=== PATIENT | female | born 1955 | race Hispanic/Latino ===

== ENCOUNTER 2024-08-30 11:17 | Emergency (ER) | payer MEDICARE, SELFPAY ==
[2024-08-30 11:23] VITALS: BP 119/58; PULSE 66; RESP 16; TEMP 36.3; O2SAT 97
--- NOTE | 2024-08-30 11:45 | ED.GENADULT ---
HPI - General Adult General Chief complaint: Abdominal Pain Stated complaint: flu symptoms Time Seen by Provider: 08/30/24 11:40 Source: patient, family, RN notes reviewed and old records reviewed Mode of arrival: ambulatory Limitations: language barrier and other (daughter translates) History of Present Illness HPI narrative: 69 year female who presents to [facility] care with complaints of 3 day history of abdominal pain below her umbilicus that feel like it goes down to her rectum with loose stools. Patient reports no nausea or vomiting has been drinking electrolyte supplement and has been having a light diet. Patient reports that she did have a low grade fever of 99.7F last night. Patient reports that pain is sharp and rates it at a 7/10. Patient reports that last colonoscopy 12 years ago. MD complaint: abdominal pain below umbilicus Onset (ago): day(s) (3) Location: abdomen (below umbilicus) Severity scale (1-10): 7 Quality: stabbing and other (cramping) Treatments prior to arrival: other (no OTC medication, electrolyte replacement and light diet) Related Data Allergies Allergy/AdvReac Type Severity Reaction Status Date / Time amoxicillin Allergy Intermediate pass Verified 08/30/24 11:52 Review of Systems Review of Systems: CONSTITUTIONAL: Reports fever, chills, or sweats. ENT: Denies rhinorrhea, congestion, sore throat, or otalgia. CARDIOVASCULAR: Denies chest pain, palpitations, or edema. RESPIRATORY: Denies cough or dyspnea. GASTROINTESTINAL: Reports abdominal pain below umbilicus, no nausea, vomiting, positive for diarrhea GENITOURINARY: Denies dysuria or hematuria. SKIN: Denies rash or itching. MUSCULOSKELETAL: Denies back pain, joint pain, or myalgia. NEUROLOGIC: Denies headache, numbness, or weakness. All systems reviewed & are unremarkable except as noted in HPI and below PMFSH Past Medical History Medical History (Updated 08/31/24 @ 11:22 by Mey Hernandez NP) Back pain Surgical History Surgical History (Updated 08/31/24 @ 11:04 by Mey Hernandez NP) History of lumbar surgery with hardware Social History Social History (Updated 08/31/24 @ 11:02 by Mey Hernandez NP) Smoking status: Never smoker Alcohol intake: current Alcohol use details: rare social Substance use type: does not use Living arrangements: with family Gender identity (if verbalized by the patient): Female Comments At time of signature, agree with nursing past medical, surgical, social and family history. There is no relevant family history pertinent to the presenting complaint Exam Narrative: GENERAL: Well-appearing, well-nourished, and in no acute distress. HEAD: Normocephalic, atraumatic. EYES: PERRLA, conjunctivae clear, and EOMI. ENT: Nares clear. Mucous membranes moist. Oropharynx without edema, erythema, or lesions. Tonsils not enlarged and without exudate. NECK: Supple. No lymphadenopathy CHEST: Speaks in full sentences. No respiratory distress., no cough noted SAO2 97% on room air HEART: Regular rate and rhythm. ABDOMEN: Soft, flat, nondistended. discomfort below umbilicus region, no rebound tenderness, or rigidity.. No pulsatilla masses. Bowel sounds present in all four quadrants. No organomegaly. Negative Hodge?s sign. tenderness on palpation to area below umbilicus, no McBurney point tenderness,. No Supra public tenderness or distension. Good femoral pulses bilaterally. No hernia noted. No scars or surface trauma. SKIN: Warm, dry, no rash. NEURO:? Alert and oriented x3. PSYCH: Normal mood and affect Course Course Emergency Course: Patient is aware of diagnosis, understands and agrees to treatment plan.? Anticipatory guidance given.? Patient agrees to follow-up as directed and is aware of reasons to transfer to the emergency department. Portions of this record may have been created with voice recognition software Level of Care: Express Care Visit Vital Signs Vital signs: Vital Signs Temperature 36.3 C L 08/30/24 11:23 Pulse Rate 66 08/30/24 11:23 Respiratory Rate 16 08/30/24 11:23 Blood Pressure 119/58 L 08/30/24 11:23 Pulse Oximetry 97 08/30/24 11:23 Oxygen Delivery Room Air 08/30/24 11:23 Temperature 36.3 C L 08/30/24 11:23 Pulse Rate 66 08/30/24 11:23 Respiratory Rate 16 08/30/24 11:23 Blood Pressure 119/58 L 08/30/24 11:23 Pulse Oximetry 97 08/30/24 11:23 Oxygen Delivery Room Air 08/30/24 11:23 Reviewed Transfer Transfered to: [facility] ([place]) Transportation: Other (per private car with daughter) Transfer rationale: Abdominal pain below umbilicus, diarrhea and fevers last evenig, needs further evaluation, labs, and advanced testing Accepting physician: ALBERTO Transfer comments: transfer per private car with daughter to ED at [facility] Medical Decision Making MDM Narrative Medical decision making narrative: 1216 Call placed to ED at [facility] with condition reports, VS PMH and results of testing done reviewed with AUTOS DISASSEMBLER Enoch Cadena with Dr Cuellar accepting physician for transfer. Differential Diagnosis Differential Diagnosis: abdominal pain, diverticulitis, bowel obstruction, colon infection, colitis. Medical Records Medical records reviewed: Yes I reviewed the external patient's medical records. Vital Signs Vital Signs: Vital Signs Temperature 36.3 C L 08/30/24 11:23 Pulse Rate 66 08/30/24 11:23 Respiratory Rate 16 08/30/24 11:23 Blood Pressure 119/58 L 08/30/24 11:23 Pulse Oximetry 97 08/30/24 11:23 Oxygen Delivery Room Air 08/30/24 11:23 Temperature 36.3 C L 08/30/24 11:23 Pulse Rate 66 08/30/24 11:23 Respiratory Rate 16 08/30/24 11:23 Blood Pressure 119/58 L 08/30/24 11:23 Pulse Oximetry 97 08/30/24 11:23 Oxygen Delivery Room Air 08/30/24 11:23 Lab Data Lab results reviewed: Yes I reviewed the patient's lab results. Lab results narrative: influenza A negative, Influenza B negative, urine dip see report Labs: Lab Results 08/30/24 08/30/24 Range/Units 11:56 12:03 POC Urine Color Mandy POC Urine Clarity Clear POC Urine pH 5.5 POC Ur Specif Aledo 1.025 POC Urine Protein 1+ (Negative) POC Ur Glucose (UA) Negative (Negative) POC Urine Ketones Negative (Negative) POC Urine Blood Negative (Negative) POC Urine Nitrite Negative (Negative) POC Urine Bilirubin 1+ (Negative) POC Urine Urobilinogen 1.0 POC U Leukocyte Esteras Negative (Negative) POC Influenza A Ag Negative (Negative) POC Influenza B Ag Negative (Negative) POC SARS CoV-2 Ag Negative (Negative) reviewed Critical Care Time Critical Care Time Critical Care Time: No Discharge Plan Discharge Clinical Impression: Abdominal pain Qualifiers: Abdominal location: periumbilical Qualified Code(s): R10.33 - Periumbilical pain Diarrhea Qualifiers: Diarrhea type: unspecified type Qualified Code(s): R19.7 - Diarrhea, unspecified Patient Disposition: Acute Care Hospital Condition: Stable Patient Language: Hungarian Follow-up/Referrals: PHYSICIAN NOT ON STAFF,NONSTAFF [Primary Care Provider] - Time of Disposition: 12:29 Quality [place] Coma Scale Eyes: Open Verbal: Oriented and Alert Motor: Follows Commands Trevon Coma Total Score: 15
[2024-08-30 11:59] LABS: EDUAAPPEAR Clear; EDUABILI 1+ (Negative); EDUABLOOD Negative (Negative); EDUACOLOR1 Amber; EDUAGLUCOSE Negative (Negative); EDUAKETONE Negative (Negative); EDUALEUKO Negative (Negative); EDUANITRATE Negative (Negative); EDUAPH 5.5; EDUAPROTEIN 1+ (Negative); EDUASPGRAVITY 1.025
[2024-08-30 12:13] LABS: EDCOVIDSCREEN Negative (Negative); EDINFLUASCREEN Negative (Negative); EDINFLUBSCREEN Negative (Negative)
--- OUTSIDE RECORDS SUMMARY | 2024-08-30 13:14 | XMS_ITS | Encounter Summary ---
Author Organization [facility] Address [address] [facility] 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
--- OUTSIDE RECORDS SUMMARY | 2024-08-30 13:14 | XMS_ITS | Clinical Summary ---
Author Organization [facility] Address [address] [place] [address] Care Team Providers Care Photographic Equipment Assembler Name Role Phone Unavailable Primary Care Provider Unavailabl e Source Comments [facility],non-owned Affiliates and Associated Physician Practices is amultiple site organization consisting of ambulatory clinics and hospital sitesin [place], [place], [place] and [place]. This disclosure is being madepursuant to the Care Everywhere program and may not contain all information available regarding this patient. Last updated 18.[facility] [employer] Allergies Active Allergy Reactions Criticality Noted Date Comments Penicillins Anaphylaxis High 07/22/2018 Medications Be aware that medications may not be up to date on this document. Always verify current medications with the patient. No known medications Active Problems No known active problems Family History Medical History Relation Name Comments CVA Father Renal Disease Mother Relation Name Status Comments Father Mother Social History Tobacco Use Types Packs/Day Years Used Date Smoking Tobacco: Former Smokeless Tobacco: Never Alcohol Use Standard Drinks/Week Comments No 0 (1 standard drink = 0.6 oz pur e alcohol) Sex and Gender Information Value Date Recorded Sex Assigned at Not on file Gender Identity Female 07/22/2018 6:17 PM ACID REMOVER Sexual Orientation Not on file Last Filed Vital Signs Vital Sign Reading Time Taken Comments Blood Pressure 130/70 07/22/2018 6:23 PM ACID REMOVER Pulse 90 07/22/2018 6:23 PM ACID REMOVER Temperature 37.1 C (98.8 F) 07/22/2018 6:23 PM ACID REMOVER Respiratory Rate 18 07/22/2018 6:23 PM ACID REMOVER Oxygen Saturation 95% 07/22/2018 6:23 PM ACID REMOVER Inhaled Oxygen Concentration - - Weight 88.9 kg (196 lb) 07/22/2018 6:23 PM ACID REMOVER Height 165.1 cm (5' 5 ) 07/22/2018 6:23 PM ACID REMOVER Body Mass Index 32.62 07/22/2018 6:23 PM ACID REMOVER Plan of Treatment Health Maintenance Due Date Last Done Comments BONE DENSITY TESTING 1955 COLOGUARD (AGES 45-75) - COL ON CA SCREENING 1955 COLON MONITORING 1955 COLONOSCOPY - COLON CA SCREENING 1955 CT COLONOGRAPHY - COLON CA SCREENING 1955 Colorectal Cancer Screening 1955 FIT - COLON CA SCREENING 1955 FLEX SIG - COLON CA SCREENING 1955 LIPID TESTING 1955 MAMMOGRAM 1955 HEPATITIS C SCREENING 06/06/1973 DTAP/TDAP/TD VACCINES (1 - Tdap) 1974 PNEUMOCOCCAL VACCINE 50+ (1 of 1 - PCV) 2005 ZOSTER VACCINE (1 of 2) 2005 SCREENING FOR DIABETES 07/22/2018 COVID-19 VACCINE (1 - 2023-2 5 season) 2024 INFLUENZA VACCINE (#1) 2024 DEPRESSION SCREENING 06/14/2024 Respiratory Syncytial Virus (RSV) Vaccine Pt: or over 60 yrs (1 - 1-dose 75+ series) 2030 HEPATITIS B VACCINE Aged Out No longe r eligible based on patient's age to complete this topic HIB VACCINE Aged Out No longer eligi ble based on patient's age to complete this topic HPV VACCINE Aged Out No longer eligi ble based on patient's age to complete this topic MENINGOCOCCAL (Group B) VACC INE SHARED DECISION-MAKING Aged Out No longer eligibl e based on patient's age to complete this topic MENINGOCOCCAL GROUPS A/C/Y/W VACCINE Aged Out No longer eligible b ased on patient's age to complete this topic
--- OUTSIDE RECORDS SUMMARY | 2024-08-30 13:14 | XMS_ITS | Clinical Summary ---
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 Gender Identity Not on file Sexual Orientation Not on file Plan of Treatment Health Maintenance Due Date Last Done Comments DEXA Bone Density 1955 Hepatitis C Virus (HCV) Screening 1955 Colonoscopy 2000 Colorectal Cancer Screening 2000 Cologuard 2005 Immunochemical Fecal Occult Blood 2005 Zoster Immunization (1 of 2) 2005 Pneumococcal Immunization (5 0+ years) (2 of 2 - PPSV23) 11/26/2021 11/26/2020 Influenza Immunization (#1) 02/13/202403/14, 03/29/2014 SARS-COV-2 Immunization (3 - season) 2024 10/05/2020, 09/14/2020 Respiratory Syncytial Virus (RSV) Immunization (Adult) (1 - 1-dose 75+ series) 2030 DTaP/Tdap/Td Immunization Discontinued 11/26/2020 Pneumococcal Immunization Combined Discontinued 11/26/2020 TdaP Immunization Completed 11/26/2020 Mammogram Discontinued 03/25/2022 Hepatitis B Immunization Aged Out No longer eligible based on patient's age to complete this topic Meningococcal Immunization (ACWY) Aged Out No longer eligible based on patient's age to complete this topic Rotavirus Immunization Aged Out No lo nger eligible based on patient's age to complete this topic Procedures Procedure Name Priority Date/Time Associated Diagnosis Comments AMARA SCREENING BILATERAL DIGITAL W CAD W CHECO Routine 03/25/2022 9:48 AM CDT Encounter for screening mammogram for malignant neoplasm of breast from Last 3 Months or Most Recently Relevant to Health Maintenance Results * AMARA SCREENING BILATERAL DIGITAL W CAD W CHECO (03/25/2022 9:48 AM CDT) Anatomical Region Laterality Modality breast Bilateral Mammography 03/25/2022 11:1 5 AM CDT Narrative 03/26/2022 9:12 AM CDT - AMARA SCREENING BILATERAL DIGITAL W CAD W CHECO BILATERAL DIGITAL SCREENING MAMMOGRAM 3D/2D WITH CAD WITH MEDIOLATERAL OBLIQUE CRANIOCAUDAL: 03/25/2022 The study was acquired using digital technology and interpreted from soft copy. Current study was also evaluated with ICAD version 7.2. 2D digital mammographic views, as well as 3D digital tomosynthesis were performed in the CC and MLO projections. CLINICAL: New baseline. Does not know location of last mammogram. Routine screening. Patient has no complaints. No personal history of cancer. No family history of breast cancer. COMPARISONS: No prior exams were available for comparison. BREAST TISSUE:There are scattered fibroglandular densities in both breasts. FINDINGS: No significant masses, calcifications, or other findings are seen in either breast. IMPRESSION: BI-RAD 1 NEGATIVE There is no mammographic evidence of malignancy. A 1 year screening mammogram is recommended. A letter will be sent to the patient with these results. The patient will be entered into a reminder system with a target due date of 1 year for her next screening exam. Electronically signed by: Kena morales/ronald:03/25/2022 18:20:50 Motor Route Carrier(s): RT Navya(R)(M), [facility] letter sent: Normal Exam Reading location: [place] BI-RADS: 1 Negative Procedure Note Kena Mackey MD - 03/26/2022 - AMARA SCREENING BILATERAL DIGITAL W CAD W CHECO BILATERAL DIGITAL SCREENING MAMMOGRAM 3D/2D WITH CAD WITH MEDIOLATERAL OBLIQUE CRANIOCAUDAL: 03/25/2022 The study was acquired using digital technology and interpreted from soft copy. Current study was also evaluated with ICAD version 7.2. 2D digital mammographic views, as well as 3D digital tomosynthesis were performed in the CC and MLO projections. CLINICAL: New baseline. Does not know location of last mammogram. Routine screening. Patient has no complaints. No personal history of cancer. No family history of breast cancer. COMPARISONS: No prior exams were available for comparison. BREAST TISSUE:There are scattered fibroglandular densities in both breasts. FINDINGS: No significant masses, calcifications, or other findings are seen in either breast. IMPRESSION: BI-RAD 1 NEGATIVE There is no mammographic evidence of malignancy. A 1 year screening mammogram is recommended. A letter will be sent to the patient with these results. The patient will be entered into a reminder system with a target due date of 1 year for her next screening exam. Electronically signed by: Kena morales/ronald:03/25/2022 18:20:50 Motor Route Carrier(s): RT Navya(R)(M), [facility] letter sent: Normal Exam Reading location: [place] BI-RADS: 1 Negative Mary Mckenna [facility] MAMMO ORDERABLES Fin al Result from Last 3 Months or Most Recently Relevant to Health Maintenance Insurance MEDICARE C [facility] Care Teams Ditch Worker Relationship Specialty Start Date End Date Mary Mckenna PAC [address] [place] [address] PCP - General Physician Marketing Communication Manager 03/23/22
--- OUTSIDE RECORDS SUMMARY | 2024-08-30 13:23 | XMS_ITS | Encounter Summary ---
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
== END 2024-08-30 12:29 | disposition short-term general hospital (02) ==
PROVIDERS: Emergency Provider Registered Nurse
DX: R10.33 Periumbilical pain (principal); R19.7 Diarrhea, unspecified; Z20.822 Contact with and (suspected) exposure to COVID-19
CPT/HCPCS: 81003; 87426; 87804; 99212; G0463